=== PATIENT | female | born 1990 | race Caucasian/White ===

== ENCOUNTER 2021-04-05 16:22 | Emergency (ER) | payer BC, OTHER ==
[~2021-04-05] VITALS: Ht 160 cm; Wt 103.9 kg
[2021-04-05 16:33] VITALS: BP 132/78
[2021-04-05] MEDS ORDERED: DOXYCYCLINE 10100 MG PO (17:20)
== END 2021-04-05 17:21 | disposition home or self-care (01) ==
LOC: ER 16:22
DX: L02.31 Cutaneous abscess of buttock (principal); Z88.5 Allergy status to narcotic agent

== ENCOUNTER 2021-04-08 12:40 | Emergency (ER) | payer BC, OTHER ==
[~2021-04-08] VITALS: Ht 160 cm; Wt 103.9 kg
[~2021-04-08 12:40] MED LIST: DOXYCYCLINE 10100 MG PO
[2021-04-08 12:48] VITALS: BP 140/89
[2021-04-08] MEDS ORDERED: METFORMIN HCL500 M1 PO (12:50)
[2021-04-08] MEDS ORDERED: MILI 0.25-0.031 EACH PO (12:51)
== END 2021-04-08 13:17 | disposition home or self-care (01) ==
LOC: ER 12:40
DX: N73.9 Female pelvic inflammatory disease, unspecified (principal); Z48.01 Encounter for change or removal of surgical wound dressing; Z79.84 Long term (current) use of oral hypoglycemic drugs; Z79.899 Other long term (current) drug therapy; Z88.5 Allergy status to narcotic agent